=== PATIENT | female | born 1965 | race Two or more races ===

== ENCOUNTER 2019-05-30 01:22 | Inpatient (IN) | payer OTHER ==
[~2019-05-30] VITALS: Ht 144.8 cm; Wt 69.9 kg
[2019-05-30 03:00] VITALS: BP 117/73
--- NOTE | 2019-05-30 03:00 | NUR ---
RECEIVE PT FROM [facility] WITH 2 EMT. PT A/O X 4, STABLE AND NOT IN APPARENT DISTRESS. RESPIRATIONS EVEN AND UNLABORED. PT IS FEELING BETTER. NEEDS ATTENDED, KEPT CLEAN AND COMFORTABLE, PT NOTED WITH TEMP COOLING MEASURES PROVIDED WILL CONTINUE TO MTR.
[2019-05-30] MEDS ORDERED: ASPI-1152 PO (03:05)
[2019-05-30] MEDS ORDERED: GLIP5TAB13 PO (03:05)
[2019-05-30] MEDS ORDERED: SIMV20TA6 PO (03:05)
[2019-05-30] MEDS ORDERED: HYDR25TA4 PO (03:05)
[2019-05-30] MEDS ORDERED: METF-442 PO (03:05)
[2019-05-30] MEDS ORDERED: LEVO88TA5 PO (03:05)
--- NOTE | 2019-05-30 03:15 | NUR ---
PAGED HOSPITALIST FOR ADMITTING ORDERS
--- NOTE | 2019-05-30 03:20 | NUR ---
RN NOTES HOSPITALIST DR. ALEMAN AWARE AND HE WILL PUT THE ADMITTING ORDERS
[2019-05-30] MEDS ORDERED: CEFTRIAXONE 1 G in IV D5W 50 ML IV SCH (04:00)
[2019-05-30] MEDS ORDERED: DEXTROSE 50%-WATER 50 ML DISP.SYRIN IV PRN ×2 (04:00→11:00)
[2019-05-30] MEDS ORDERED: ZOLPIDEM TARTRATE 5 MG TABLET PO PRN (04:00)
[2019-05-30] MEDS ORDERED: INSULIN REGULAR, HUMAN 100 UNIT/ML 3 ML VIAL SQ PRN (04:00)
[2019-05-30] MEDS ORDERED: CEFTRIAXONE 1 G VIAL ONE (04:10)
[2019-05-30] MEDS: IV 1/2NS 1000 ML 1,000 ML IV PRN ×2 (04:16→17:40)
[2019-05-30] MEDS: ACETAMINOPHEN 325 MG TABLET PO PRN ×3 (04:31→21:08)
--- NOTE | 2019-05-30 06:12 | NUR ---
ASLEEP AND EASILY AWAKEN, ON CARDIAC MONITORING WITH SR 93 IN THE TELE MONITOR. RESPIRATIONS EVEN AND UNLABORED. KEPT CLEAN AND DRY AND COMFORTABLE. NEEDS ATTENDED AND ANTICIPATED, NO C/O OF PAIN. SAFETY MEASURES AT ALL TIMES. ENDORSE TO THE NEXT SHIFT.
[2019-05-30] MEDS ORDERED: BLOOD SUGAR DIAGNOSTIC 1 EACH STRIP IN SCH (07:30)
[2019-05-30 08:00] VITALS: BP 100/68
[2019-05-30 08:37] LABS: BASOPHILS % (AUTO) 0.2 % (0.0-2.0); HEMATOCRIT 38 % (33-45); HEMOGLOBIN 13.1 g/dL (11.5-14.8); LYMPHOCYTES # (AUTO) 0.9 /CMM (0.8-4.8); LYMPHOCYTES % (AUTO) 7.8 % (20.0-44.0); MEAN CORPUSCULAR HGB CONC 34 g/dl (31.0-36.0); MEAN CORPUSCULAR VOLUME 89 fL (82-100); MONOCYTES # (AUTO) 0.3 /CMM (0.1-1.30); MONOCYTES % (AUTO) 2.5 % (2.0-12.0); NEUTROPHILS # (AUTO) 9.8 /CMM (1.8-8.9); NEUTROPHILS % (AUTO) 89.5 % (43.0-81.0); PLATELET COUNT (AUTO) 174 /CMM (150-450); RED BLOOD CELL COUNT(AUTO) 4.32 MIL/uL (4.0-5.2)
[2019-05-30 09:14] LABS: CHOLESTEROL 118 mg/dL (<200); HDL CHOLESTEROL 47 mg/dL (40-60); LDL 56 mg/dL (0-99); THYROID STIMULATING HORMONE 4.014 uIU/mL (0.358-3.74); TRIGLYCERIDES 157 mg/dL (30-150)
[2019-05-30 09:17] LABS: ALANINE AMINOTRANSFERASE 56 U/L (12-78); ALBUMIN 3.1 g/dL (3.4-5.0); ALKALINE PHOSPHATASE 150 U/L (46-116); ASPARTATE AMINOTRANSFERASE 70 U/L (15-37); BILIRUBIN,TOTAL 0.3 mg/dL (0.2-1.0); CALCIUM, SERUM 8.4 mg/dL (8.5-10.1); CARBON DIOXIDE 26 mmol/L (21-32); CHLORIDE 97 mmol/L (98-107); GLUCOSE 336 mg/dL (74-106); MAGNESIUM 1.4 mg/dL (1.8-2.4); PHOSPHORUS 3.5 mg/dL (2.5-4.9); SODIUM SERUM 134 mmol/L (136-145); TOTAL PROTEIN, SERUM 7.2 g/dL (6.4-8.2); UREA NITROGEN, BLOOD 7 mg/dL (7-18)
[2019-05-30] MEDS: PANTOPRAZOLE 40 MG TABLET.DR PO SCH (09:19)
[2019-05-30] MEDS: LEVOTHYROXINE SODIUM 88 MCG TABLET PO SCH (09:19)
[2019-05-30] MEDS: ASPIRIN EC 81 MG TABLET.DR PO SCH (09:20)
[2019-05-30] MEDS: MORPHINE SULFATE INJ 2 MG/ML DISP.SYRIN IV PRN (09:20)
[2019-05-30] MEDS: glipiZIDE 5 MG TABLET PO SCH ×2 (09:20→16:57)
--- NOTE | 2019-05-30 09:20 | NUR ---
RN NOTES ADMINISTERED MORPHINE 2 MG/ML IV PUSH GENERALIZED PAIN 07/31PER PATIENT REQUEST. V/S TAKEN 100/68, P-80. ALSO GET CALL FROM LAB PATIENT HAS LOW KCL-2.8, AN LACTIC ACID 2. MD NOTIFIED WAITING FOR RESPOND.
[2019-05-30 09:28] LABS: POTASSIUM 2.8 mmol/L (3.5-5.1)
--- NOTE | 2019-05-30 10:00 | NUR ---
RN NOTES GET ORDERS FROM HOSPITALIST, MEDICATION WERE ADMINISTERED FOR PAIN EFFECTIVE. INFUSING NS BOLUS 1000 ML. PUT NEW IV LINE ON RIGHT AC AREA. LEFT ARM INFUSING MAGNESIUM 100 ML/HR INTACT. CALL LIGHT WITHIN TO REACH,. CONTINUED MONITORING.
[2019-05-30] MEDS ORDERED: POTASSIUM CHLORIDE 20 MEQ TAB.PRT.SR PO ONE (11:00)
[2019-05-30] MEDS: ONDANSETRON HCL/PF 4 MG/2 ML VIAL IVP PRN ×2 (11:19→21:19)
--- NOTE | 2019-05-30 11:19 | NUR ---
rn notes administered Zofran 4 mg/ml iv push for nausea, and vomiting.
[2019-05-30 11:40] LABS: BILIRUBIN,DIRECT 0.2 mg/dL (0.0-0.2)
[2019-05-30] MEDS: Magnesium 1GM/D5W 100ML PREMIX 100 ML IV SCH ×4 (11:47→16:57)
[2019-05-30] MEDS ORDERED: IV NS 0.9% 1,000 ML IV STA (11:57)
[2019-05-30] MEDS: BLOOD SUGAR DIAGNOSTIC 1 EACH STRIP IN SCH ×3 (12:26→21:08)
--- NOTE | 2019-05-30 12:40 | NUR ---
rn notes Get call from lab critical lab lactic acid 4.2 at this time administering NS 1000ml bolus at this time. bs-311mg/dl coverage given, medication were administered for nausea and pain effective. family next to the bed.
[2019-05-30 13:00] VITALS: BP 111/67
[2019-05-30] MEDS: INSULIN REGULAR, HUMAN 100 UNIT/ML 3 ML VIAL SQ PRN ×2 (13:15→17:54)
--- NOTE | 2019-05-30 13:21 | NUR ---
rn notes administered Tylenol for T-102.5, also ice applicant.
--- NOTE | 2019-05-30 14:30 | NUR ---
RN NOTES T-98.7, PATIENT REFUSED NAUSEA, AND VOMITING.
[2019-05-30 16:00] VITALS: BP 91/63
--- NOTE | 2019-05-30 17:00 | NUR ---
RN NOTES LACTIC ACID LEVEL IS 2.7, NOTIFIED HOSPITALIST OREN GET NEW ORDER 1L NS BOLUS, ALSO BLOOD CULTURE X2, AND RECHECK LACTIC ACID ON 2100. ORDERS TAKEN AND CARRIED OUT.
[2019-05-30] MEDS ORDERED: IV NS 0.9% 1,000 ML IV PRN (17:30)
--- NOTE | 2019-05-30 18:30 | NUR ---
RN NOTES PATIENT STABLE, V/S TAKEN WNL., PATIENT RESTING, REFUSING PAIN, NAUSEA/VOMITING AT THIS TIME.ADMINISTERED SCHEDULED MEDICATION, BS-344 COVERAGE GIVEN. INFUSING 1/2 NS 125 ML/HR ON LEFT AC AREA. FAMILY NEXT TO THE BED. ENDORSED ONCOMING NURSE FOLLOW PLAN OF CARE.
--- NOTE | 2019-05-30 19:52 | NUR ---
RN MS OPENING NOTES RECEIVED PATIENT IN BED AWAKE, ALERT AND ORIENTED X4, VERBALLY RESPONSIVE, ABLE TO MAKE NEEDS KNOWN. FAMILY AT BEDSIDE. BREATHING EVEN AND UNLABORED. NO SOB NOTED. TOLERATING ROOM AIR. CURRENTLY WITH NO COMPLAINTS OF PAIN OR DISCOMFORT. NO FACIAL GRIMACING. IV ON LEFT AC INTACT AND PATENT WITH IVF INFUSING. SKIN DRY AND WARM TO TOUCH. ALL OTHER NEEDS ATTENDED TO. SAFETY MEASURES IN PLACE. CALL LIGHT WITHIN REACH. WILL CONTINUE TO MONITOR.
[2019-05-30] MEDS: SIMVASTATIN 20 MG TABLET PO SCH (21:05)
[2019-05-30] MEDS: *INSULIN REGULAR(HUMULIN R)HUM 100 UNIT/ML VIAL SQ PRN (21:12)
[2019-05-30 21:17] VITALS: BP 115/81
--- NOTE | 2019-05-30 22:15 | NUR ---
RN MS NOTES DR. ALEMAN MADE AWARE OF LACTIC ACID 3.3 WITH NO NEW ORDERS AT THIS TIME. WILL CONTINUE TO MONITOR.
[2019-05-31] MEDS ORDERED: VANCOMYCIN 1 GM in IV NS 0.9% 250 ML IV SCH (00:30)
--- NOTE | 2019-05-31 00:32 | NUR ---
RN MS NOTES PATIENT'S CURRENT TEMPERATURE IS 103F ORALLY. DR. ALEMAN, HERE IN UNIT, MADE AWAKE OF TEMPERATURE. ALSO MADE AWARE THAT PATIENT RECEIVED TYLENOL 650MG ALREADY. PER DR. ALEMAN, D/C ROCEPHIN, GIVE VANCOMYCIN 1GM IV X1 NOW AND PHARMACY TO DOSE FOR MORNING, AND ALSO ZOSYN 3.375 IV X1 NOW AND Q8H. ORDERS NOTED AND CARRIED OUT. COOLING MEASURES IN PLACE. WILL CONTINUE TO MONITOR.
[2019-05-31] MEDS ORDERED: PIPERACILLIN /TAZOBACTAM 3.375 G in IV D5W 50 ML IV SCH (01:00)
[2019-05-31] MEDS ORDERED: VANCOMYCIN 1 GM VIAL ONE (01:01)
[2019-05-31] MEDS ORDERED: PIPERACILLIN /TAZOBACTAM 3.375 G VIAL IV ONE (01:02)
[2019-05-31] MEDS: MORPHINE SULFATE INJ 2 MG/ML DISP.SYRIN IV PRN ×3 (01:26→20:10)
[2019-05-31] MEDS: IV 1/2NS 1000 ML 1,000 ML IV PRN ×2 (04:14→16:10)
[2019-05-31] MEDS: BLOOD SUGAR DIAGNOSTIC 1 EACH STRIP IN SCH ×4 (06:34→22:13)
[2019-05-31] MEDS: INSULIN REGULAR, HUMAN 100 UNIT/ML 3 ML VIAL SQ PRN ×3 (06:35→17:30)
--- NOTE | 2019-05-31 06:40 | NUR ---
RN MS CLOSING NOTES PATIENT RESTING IN BED. STATES THAT SHE FEELS MUCH BETTER. TEMPERATURE BETTER. BREATHING EVEN AND UNLABORED. NO SOB NOTED. TOLERATING ROOM AIR. CURRENTLY WITH NO COMPLAINTS OF PAIN OR DISCOMFORT. NO FACIAL GRIMACING. IV ON LEFT AC INTACT AND PATENT WITH IVF INFUSING. ALL NEEDS ATTENDED TO. SAFETY MEASURES IN PLACE. CALL LIGHT WITHIN REACH. WILL ENDORSE TO ONCOMING NURSE FOR RADHA.
--- NOTE | 2019-05-31 07:29 | NUR ---
RN NOTES ENDORSED TO RN TERRIE REGARDING ZOSYN. EXPLAINED THAT I SPOKE TO PHARMACY REGARDING THE 0700 ZOSYN. PER PHARMACY, ZOSYN DOES NOT HAVE TO BE GIVEN RIGHT NOW AND THEY WILL FIX THE SCHEDULED DOSAGE TO THE EXTENDED INFUSION.
--- NOTE | 2019-05-31 07:30 | NUR ---
MS/RN OPENING NOTE THE PATIENT IS RECEIVED IN BED. AWAKE, ALERT AND ORIENTED X4. IN ROOM AIR AND DENIES SOB. RESPIRATION REGULAR AND UNLABORED. DENIES PAIN. THE PATIENT IN NO APPARENT DISTRESS. LAC G 20 PATENT AND SALINE LOCKED. RAC G 20 PATENT AND 1/2 NS INFUSING AT 125ML/HR AND NO S/S INFILTRATION NOTED. BED LOW AND LOCKED. SIDE RAILS UP X3. CALL LIGHT WITHIN REACH. WILL CONTINUE TO MAGITOT.
[2019-05-31] MEDS ORDERED: FEE PK DOSING 1 MIN EA MC ONE (07:48)
[2019-05-31 08:00] VITALS: BP 124/78
[2019-05-31] MEDS: glipiZIDE 5 MG TABLET PO SCH ×2 (08:15→18:22)
[2019-05-31] MEDS: LEVOTHYROXINE SODIUM 88 MCG TABLET PO SCH (08:15)
[2019-05-31] MEDS: PANTOPRAZOLE 40 MG TABLET.DR PO SCH (08:15)
[2019-05-31] MEDS: ASPIRIN EC 81 MG TABLET.DR PO SCH (08:15)
[2019-05-31 08:18] LABS: BASOPHILS % (AUTO) 0.2 % (0.0-2.0); EOSINOPHILS % (AUTO) 0.1 % (0.0-6.0); HEMATOCRIT 37 % (33-45); HEMOGLOBIN 12.2 g/dL (11.5-14.8); LYMPHOCYTES # (AUTO) 1.7 /CMM (0.8-4.8); LYMPHOCYTES % (AUTO) 15.1 % (20.0-44.0); MEAN CORPUSCULAR HGB CONC 33 g/dl (31.0-36.0); MEAN CORPUSCULAR VOLUME 90 fL (82-100); MONOCYTES # (AUTO) 0.5 /CMM (0.1-1.30); MONOCYTES % (AUTO) 4.6 % (2.0-12.0); NEUTROPHILS # (AUTO) 8.9 /CMM (1.8-8.9); PLATELET COUNT (AUTO) 132 /CMM (150-450); RED BLOOD CELL COUNT(AUTO) 4.12 MIL/uL (4.0-5.2); WHITE BLOOD COUNT (AUTO) 11.1 K/uL (4.3-11.0)
[2019-05-31 08:22] LABS: CALCIUM, SERUM 8.4 mg/dL (8.5-10.1); CREATININE 0.9 mg/dL (0.6-1.3); MAGNESIUM 2.3 mg/dL (1.8-2.4); PHOSPHORUS 1.9 mg/dL (2.5-4.9); POTASSIUM 3.4 mmol/L (3.5-5.1)
[2019-05-31] MEDS: PIPERACILLIN /TAZOBACTAM 3.375 G in IV D5W 100 ML IV SCH ×2 (08:27→16:10)
[2019-05-31] MEDS: ACETAMINOPHEN 325 MG TABLET PO PRN ×2 (08:43→20:08)
[2019-05-31] MEDS: ONDANSETRON HCL/PF 4 MG/2 ML VIAL IVP PRN ×2 (08:44→18:17)
--- NOTE | 2019-05-31 09:08 | NUR ---
MS/RN NOTE MOHAN SILVA STATED THAT HE MADE DR CABRERA AWARE OF POSSIBLE SURGERY.
[2019-05-31] MEDS ORDERED: NEUTRA PHOS 1 POWD.PACKET PO ONE (11:00)
[2019-05-31] MEDS ORDERED: POTASSIUM CHLORIDE 20 MEQ TAB.PRT.SR PO SCH (12:00)
--- NOTE | 2019-05-31 12:00 | NUR ---
MS/RN NOTE COAL MINER EBONI IS MADE AWARE THAT THE PATIENT HAD TEMP OF 100.3 AND AFTER COOLING MEASURES TEMP DECREASED TO 99.1. NO NEW ORDER PER COAL MINER.
[2019-05-31 16:00] VITALS: BP_SYST 84; BP_SYST 89; BP_DIAS 48
[2019-05-31] MEDS ORDERED: HYDROCODONE/APAP 5/325MG 1 EACH TABLET PO PRN (16:30)
--- NOTE | 2019-05-31 18:41 | NUR ---
MS/RN NOTE THE PATIENT ALERT AND ORIENTED X4. RECEIVING OXYGEN AT 2L/MIN VIA NASAL CANNULA AND SATURATION IS AT 97%. DENIES SOB. DENIES PAIN. LAC 20 PATENT AND RAC G 20 PATENT AND MEDICATIONS INFUSING PER ORDER WITH NO S/S INFILTRATION. BED LOW AND LOCKED. SIDE RAILS UP X3. CALL LIGHT WITHIN REACH. WILL ENDORSE TO REGIONAL CONTROLLER.
[2019-05-31] MEDS: VANCOMYCIN 1 GM in IV D5W 250 ML IV SCH (18:52)
--- NOTE | 2019-05-31 19:45 | NUR ---
RN OPENING NOTES RECEIVED REPORT FROM DAYSHIFT RN TERRIE. FOUND Pt AWAKE, RESTING IN BED, DAUGHTER AT BEDSIDE. NO S/S OF ACUTE DISTRESS OR SOB NOTED. RESPIRATIONS EVEN AND UNLABORED. Pt IS A/OX4, VERBAL, ABLE TO MAKE NEEDS KNOWN. IV ACCESS ON LAC #20G & RAC #20G. SAFETY MEASURES IN PLACE. BED LOW, LOCKED, HOB ELEVATED, SIDE RAILS UP, CALL LIGHT AND BEDSIDE TABLE WITHIN REACH. WILL CONTINUE TO MONITOR Pt's CONDITION AND SAFETY THROUGHOUT THE NIGHT.
[2019-05-31 20:00] VITALS: BP 142/81
--- NOTE | 2019-05-31 20:10 | NUR ---
RN NOTES ORAL TEMP 103F. ADMINISTERED TYLENOL 650MG FOR FEVER. COOLING MEASURES APPLIED TO Pt WITH ICE BAGS. PER DAYSHIFT REPORT Pt HAS BEEN SPIKING FEVERS UP TO 103, IS AWARE. WILL CONTINUE TO MONITOR Pt's FEVER.
[2019-05-31] MEDS ORDERED: INSULIN GLARGINE, 100 UNIT/ML CARTRIDGE SQ SCH (22:00)
--- NOTE | 2019-05-31 22:00 | NUR ---
RN NOTES RECHECK ORAL TEMP: 99.3F
[2019-05-31] MEDS: NYSTATIN (PYXIS) 500,000 UNIT/5 ML ORAL.SUSP PO SCH (22:12)
[2019-05-31] MEDS: SIMVASTATIN 20 MG TABLET PO SCH (22:13)
[2019-05-31] MEDS: FLUCONAZOLE (100 MG) 100 MG TABLET PO SCH (22:13)
--- NOTE | 2019-05-31 22:30 | NUR ---
RN NOTES HS ACCUCHECK BG 317. ADMINISTERED SCHEDULED DOSE OF LANTUS 12UN WITH ADDITIONAL REGULAR INSULIN COVERAGE OF 8UN PER SLIDING SCALE.
[2019-05-31] MEDS: *INSULIN REGULAR(HUMULIN R)HUM 100 UNIT/ML VIAL SQ PRN (22:31)
[2019-06-01] MEDS: PIPERACILLIN /TAZOBACTAM 3.375 G in IV D5W 100 ML IV SCH ×3 (00:51→16:50)
[2019-06-01] MEDS: MORPHINE SULFATE INJ 2 MG/ML DISP.SYRIN IV PRN ×4 (02:27→21:42)
[2019-06-01 03:37] LABS: APPEARANCE,URINE Slightly Cloudy (CLEAR); BILIRUBIN,URINE Negative (NEGATIVE); BLOOD, URINE Small Ery/uL (NEGATIVE); COLOR,URINE Yellow (YELLOW); KETONES,URINE Trace (NEGATIVE); LEUKOCYTE ESTERASE ,URINE Trace (NEGATIVE); NITRITE, URINE Negative (NEGATIVE); PROTEIN,URINE 30 mg/dl (NEGATIVE); UGLUCOSE 500 MG/DL mg/dL (NEGATIVE); UROBILINOGEN,URINE 0.2 EU/dL (0.2)
[2019-06-01 04:01] LABS: BACTERIA,URINE None seen /HPF (None Seen); SQUAMOUS EPITHELIAL CELL,UR Few /HPF (None Seen); YEAST,URINE Few /HPF (None Seen)
[2019-06-01 06:20] LABS: BASOPHILS % (AUTO) 0.3 % (0.0-2.0); EOSINOPHILS % (AUTO) 0.2 % (0.0-6.0); HEMATOCRIT 33 % (33-45); HEMOGLOBIN 11.1 g/dL (11.5-14.8); LYMPHOCYTES # (AUTO) 1.9 /CMM (0.8-4.8); LYMPHOCYTES % (AUTO) 19.7 % (20.0-44.0); MEAN CORPUSCULAR HGB CONC 34 g/dl (31.0-36.0); MEAN CORPUSCULAR VOLUME 89 fL (82-100); MONOCYTES # (AUTO) 0.4 /CMM (0.1-1.30); MONOCYTES % (AUTO) 4.6 % (2.0-12.0); NEUTROPHILS # (AUTO) 7.1 /CMM (1.8-8.9); NEUTROPHILS % (AUTO) 75.2 % (43.0-81.0); PLATELET COUNT (AUTO) 123 /CMM (150-450); RED BLOOD CELL COUNT(AUTO) 3.68 MIL/uL (4.0-5.2); WHITE BLOOD COUNT (AUTO) 9.5 K/uL (4.3-11.0)
[2019-06-01 06:46] LABS: CREATININE 0.7 mg/dL (0.6-1.3); PHOSPHORUS 1.9 mg/dL (2.5-4.9); POTASSIUM 3.2 mmol/L (3.5-5.1)
--- NOTE | 2019-06-01 07:00 | NUR ---
RN NOTES AC ACCUCHECK BG 269. ADMINISTERED 9UN OF INSULIN PER SLIDING SCALE ON LEFT UPPER ABD.
--- NOTE | 2019-06-01 07:02 | NUR ---
RN CLOSING NOTES NO SIGNIFICANT CHANGES IN Pt's CONDITION. NO S/S OF ACUTE DISTRESS OR SOB NOTED DURING THE NIGHT. Pt IS AWAKE, RESTING IN BED. RESPIRATIONS EVEN AND UNLABORED. WILL ENDORSE TO DAYSHIFT RN FOR Pt's RADHA.
[2019-06-01] MEDS: BLOOD SUGAR DIAGNOSTIC 1 EACH STRIP IN SCH ×3 (07:06→18:05)
[2019-06-01] MEDS: INSULIN REGULAR, HUMAN 100 UNIT/ML 3 ML VIAL SQ PRN ×4 (07:16→21:47)
[2019-06-01 08:00] VITALS: BP 128/80
--- NOTE | 2019-06-01 08:00 | NUR ---
MS MARKS NOTES PATIENT IN BED RESTING. DAUGHTER AT BEDSIDE. PATIENT DENIES PAIN. PERIPHERAL IV INTACT PATENT. BED IN LOW LOCKED POSITION. CALL LIGHT WITHIN REACH. WILL CONTINUE TO MONITOR. Addendum: 06/01/19 at 1900 by ANGIE LUGO RN FEVER OF 100.2 NOTED INFORMED CANDI FREIRE ADMINISTERED.
[2019-06-01] MEDS: NYSTATIN (PYXIS) 500,000 UNIT/5 ML ORAL.SUSP PO SCH ×3 (08:30→16:50)
[2019-06-01] MEDS: LEVOTHYROXINE SODIUM 88 MCG TABLET PO SCH (08:30)
[2019-06-01] MEDS: ASPIRIN EC 81 MG TABLET.DR PO SCH (08:30)
[2019-06-01] MEDS: glipiZIDE 5 MG TABLET PO SCH ×2 (08:30→16:50)
[2019-06-01] MEDS: PANTOPRAZOLE 40 MG TABLET.DR PO SCH (08:31)
[2019-06-01] MEDS: ACETAMINOPHEN 325 MG TABLET PO PRN (08:31)
[2019-06-01] MEDS: IV 1/2NS 1000 ML 1,000 ML IV PRN (09:48)
[2019-06-01] MEDS ORDERED: DEXTROSE 50%-WATER 50 ML DISP.SYRIN IV PRN (11:00)
--- NOTE | 2019-06-01 11:00 | NUR ---
MS RN NOTES PATIENT WAS SEEN BY CANDI LYN. ORDERS FOR LUMBAR PUNCTURE DUE TO RULE OUT MENINGITIS. PATIENT PLACED NEGATIVE PRESSURE ISOLATION FOR PROTECTION. PROCEDURE EXPLAINED TO PATIENT BY CANDI PRESTON, CONSENT OBTAINED. RADIOLOGY MADE AWARE OF PROCEDURE. WILL CONTINUE TO MONITOR.
[2019-06-01] MEDS: POTASSIUM CHLORIDE 20 MEQ TAB.PRT.SR PO SCH ×2 (11:31→12:27)
[2019-06-01] MEDS ORDERED: K PHOS NEUTRAL 250 MG TABLET PO ONE (13:30)
[2019-06-01] MEDS: VANCOMYCIN 1 GM in IV D5W 250 ML IV SCH (13:34)
--- NOTE | 2019-06-01 14:31 | NUR ---
CALLED [facility] PT SEVERAL TIMES DURING THE DAY. OF 1430 NO INR IS AVAILABLE,. RADIOLOGIST ONSITE HAS A PROCEDURE AT [facility] AT 1500HRS. NURSE WAS ADVISED.
[2019-06-01 16:44] VITALS: BP 129/81
--- NOTE | 2019-06-01 17:00 | NUR ---
MS RN NOTES CALL RECEIVED FROM RADIOLOGY LUMBAR PONCTURE WILL BE PERFORMED LATER REJIIGHT SPOKE TO FRANCES. PATIENT MADE AWARE. WILL CONTINUE TO MONITOR.
--- NOTE | 2019-06-01 18:59 | NUR ---
MS RN NOTES PATIENT IN BED RESTING NO SOB OR ACUTE DISTRESS NOTED. PATIENT ALERT, ORIENTED X3. ALL MEDICATIONS ADMINISTERED. ALL NEEDS MET. WILL ENDORSE TO PM SHIFT.
--- NOTE | 2019-06-01 19:39 | NUR ---
RN OPENING NOTES RECEIVED REPORT FROM [facility] KENDRICK ADAMS. Pt LEFT FOR RADIOLOGY VIA WHEELCHAIR FOR LUMBAR PUNCTURE TO R/O MENINGITIS. ALL CONSENT SIGNED BY Pt. NO S/S OF ACUTE DISTRESS OR SOB NOTED. SAFETY MEASURES IN PLACE. WILL CONTINUE TO MONITOR Pt's CONDITION AND SAFETY WHEN Pt RETURNS TO FLOOR S/P LUMBAR PUNCTURE.
--- NOTE | 2019-06-01 19:41 | NUR ---
RN NOTES PUT IN ORDER FOR HEAD CT WO CONTRAST PER DR ALEMAN's ORDER FOR LUMBAR PUNCTURE
[2019-06-01 20:00] VITALS: BP 146/84
--- NOTE | 2019-06-01 20:06 | NUR ---
[employer] [facility] RADIOLOGIST DR FERNANDES SPOKE WITH ORDERING PHYSICIAN TO REQUEST AN CT HEAD OF THE PT DUE TO CONTRAINDICATIONS. DR FERNANDES THEN NOTIFIED US THAT LUMBAR PUNCTURE WILL BE PERFORMED ON Tuesday06/04/2019
--- NOTE | 2019-06-01 20:15 | NUR ---
RN NOTES Pt CAME BACK FROM RADIOLOGY. PER Pt STATEMENT ONLY DID HEAD CT BUT DID NOT DO THE LUMBAR PUNCTURE, Pt SAID SHE WAS TOLD BY THE RADIOLOGY STAFF THAT THEY WILL HAVE TO RESCHEDULE THE LUMBAR PUNCTURE FOR TUESDAY INSTEAD.
--- NOTE | 2019-06-01 20:37 | NUR ---
RN NOTES SPOKE WITH INTEGRATION ARCHITECT RYAN GIFFORD ON THE FLOOR. INFORMED HER OF Pt's BLADDER SCANNER RESULT: 137CC. Pt ALSO STATED THAT SHE HAS BEEN URINATING FINE. PER INTEGRATION ARCHITECT SAID TO DISREGARD THE PRIETO CATH ORDER SINCE Pt IS URINATING FINE AND IS NOT SHOWING URINARY RETENTION.
--- NOTE | 2019-06-01 20:38 | NUR ---
DISREGARD PRIETO CATHETER ORDER BY MOHAN GIFFORD. PER FISCAL SERVICES DIRECTOR. SINCE Pt STATES SHE IS URINATING FINE AND ON THE BLADDER SCANNER ONLY SHOWED SHE HAD 137CC OF URINE, MOHAN GIFFORD SAID TO DISREGARD THE PRIETO ORDER.
[2019-06-01] MEDS: FLUCONAZOLE (100 MG) 100 MG TABLET PO SCH (21:26)
[2019-06-01] MEDS: SIMVASTATIN 20 MG TABLET PO SCH (21:26)
[2019-06-01] MEDS: INSULIN GLARGINE, 100 UNIT/ML CARTRIDGE SQ SCH (21:44)
[2019-06-01] MEDS: ONDANSETRON HCL/PF 4 MG/2 ML VIAL IVP PRN (21:49)
--- NOTE | 2019-06-01 22:05 | NUR ---
RN NOTES BG 189. ADMINISTERED SCHEDULED 16UN OF LANTUS. GAVE ADDITIONAL COVERAGE OF 4UN REGULAR INSULIN PER SLIDING SCALE.
[2019-06-02] MEDS: PIPERACILLIN /TAZOBACTAM 3.375 G in IV D5W 100 ML IV SCH ×4 (00:23→23:04)
[2019-06-02] MEDS: BLOOD SUGAR DIAGNOSTIC 1 EACH STRIP IN SCH ×5 (00:23→23:10)
[2019-06-02] MEDS: PANTOPRAZOLE 40 MG TABLET.DR PO SCH (06:30)
[2019-06-02] MEDS: LEVOTHYROXINE SODIUM 88 MCG TABLET PO SCH (06:30)
[2019-06-02 06:37] LABS: BASOPHILS % (AUTO) 0.4 % (0.0-2.0); EOSINOPHILS % (AUTO) 1.9 % (0.0-6.0); HEMATOCRIT 33 % (33-45); HEMOGLOBIN 11.2 g/dL (11.5-14.8); MEAN CORPUSCULAR HGB CONC 34 g/dl (31.0-36.0); MEAN CORPUSCULAR VOLUME 89 fL (82-100); MONOCYTES # (AUTO) 0.7 /CMM (0.1-1.30); NEUTROPHILS # (AUTO) 4.4 /CMM (1.8-8.9); NEUTROPHILS % (AUTO) 53.7 % (43.0-81.0); PLATELET COUNT (AUTO) 140 /CMM (150-450); RED BLOOD CELL COUNT(AUTO) 3.68 MIL/uL (4.0-5.2); WHITE BLOOD COUNT (AUTO) 8.2 K/uL (4.3-11.0)
[2019-06-02] MEDS: INSULIN REGULAR, HUMAN 100 UNIT/ML 3 ML VIAL SQ PRN ×4 (06:42→23:11)
--- NOTE | 2019-06-02 06:44 | NUR ---
RN NOTES ACCUCHECK BG 154. ADMINISTERED 2UN OF INSULIN PER SLIDING SCALE.
[2019-06-02 06:47] LABS: CALCIUM, SERUM 8.3 mg/dL (8.5-10.1); CREATININE 0.6 mg/dL (0.6-1.3); PHOSPHORUS 1.9 mg/dL (2.5-4.9); POTASSIUM 3.1 mmol/L (3.5-5.1)
--- NOTE | 2019-06-02 07:39 | NUR ---
MS RN OPENING NOTES RECEIVED PATIENT IN BED RESTING COMFORTABLY. PATIENT IN NO ACUTE DISTRESS. PATIENT BREATHING ON OXYGEN NC AT 1L. NO SOB NOTED. PATIENT STATES SHE HAS NO CURRENT PAIN. NO FACIAL GRIMACING NOTED. PATIENT MAINTAINED ON ISOLATION PRECAUTIONS. PATIENT BED IS LOCKED AND IN LOWEST POSITION. CALL LIGHT WITHIN REACH, WILL CONTINUE TO MONITOR.
[2019-06-02] MEDS: glipiZIDE 5 MG TABLET PO SCH ×2 (08:12→17:22)
[2019-06-02] MEDS: NYSTATIN (PYXIS) 500,000 UNIT/5 ML ORAL.SUSP PO SCH ×3 (08:12→17:22)
[2019-06-02] MEDS: ASPIRIN EC 81 MG TABLET.DR PO SCH (08:12)
[2019-06-02] MEDS: IV 1/2NS 1000 ML 1,000 ML IV PRN (08:12)
[2019-06-02 08:13] VITALS: BP 133/79
[2019-06-02] MEDS ORDERED: POTASSIUM CHLORIDE 20 MEQ TAB.PRT.SR PO ONE (11:00)
--- NOTE | 2019-06-02 11:15 | NUR ---
MS RN NOTE PATIENT SEEN AND EVALUATED BY MOHAN LYN. ORDERS FOR CT CHEST, ABDOMEN, AND PELVIS WITH CONTRAST. ACTED A WITNESS FOR PATIENTS CONSENT. PATIENT VERBALIZES UNDERSTANDING. PATIENT IN NO ACUTE DISTRESS. WILL CONTINUE TO MONITOR
[2019-06-02] MEDS ORDERED: K PHOS NEUTRAL 250 MG TABLET PO ONE (11:30)
[2019-06-02] MEDS ORDERED: IOHEXOL-300 100 ML VIAL IV ONE (14:56)
[2019-06-02] MEDS ORDERED: IV NS 0.9% 250 ML IV ONE (14:56)
[2019-06-02] MEDS ORDERED: CT SWABBABLE VALVE TRANS SET 1 EA INFUS.SET MC ONE (14:56)
[2019-06-02 16:00] VITALS: BP 142/74
--- NOTE | 2019-06-02 18:45 | NUR ---
MS RN CLOSING NOTE PATIENT IN BED RESTING, BREATHING ON OXYGEN NC AT 2L. PATIENT HAS DAUGHTER AT THE BEDSIDE. PATIENT BREATHING IS EVEN AND UNLABORED. PATIENT IN NO ACUTE DISTRESS. NO SOB NOTED. PATIENT STATES NO PAIN AT THIS TIME. NO FACIAL GRIMACING NOTED. LEFT BASILIC MIDLINE 18G IN PLACE AND INTACT. PATIENT KEPT CLEAN, DRY, AND COMFORTABLE DURING MY SHIFT. ALL NURSING NEEDS MET. PATIENT BED LOCKED AND IN LOWEST POSITION. CALL LIGHT WITHIN REACH. WILL ENDORSE CARE TO PM SHIFT.
--- NOTE | 2019-06-02 19:36 | NUR ---
MS RN RECEIVE PT IN CHAIR A/O X 3, STABLE, RESPIRATIONS EVEN AND UNLABORED, SAFETY MEASURES IN PLACE. WILL CONTINUE TO MONITOR
[2019-06-02 20:00] VITALS: BP 140/82
[2019-06-02] MEDS: FLUCONAZOLE (100 MG) 100 MG TABLET PO SCH (20:43)
[2019-06-02] MEDS: SIMVASTATIN 20 MG TABLET PO SCH (21:10)
[2019-06-02] MEDS: INSULIN GLARGINE, 100 UNIT/ML CARTRIDGE SQ SCH (21:45)
[2019-06-03] MEDS: IV 1/2NS 1000 ML 1,000 ML IV PRN (01:11)
[2019-06-03] MEDS: INSULIN REGULAR, HUMAN 100 UNIT/ML 3 ML VIAL SQ PRN ×2 (05:50→12:22)
[2019-06-03] MEDS: BLOOD SUGAR DIAGNOSTIC 1 EACH STRIP IN SCH ×2 (05:50→12:12)
--- NOTE | 2019-06-03 06:11 | NUR ---
MS RN ASLEEP AND EASILY AWAKEN, AFEBRILE, RESPIRATIONS EVEN AND UNLABORED. SLEPT WELL THROUGHOUT THE NIGHT. NO S/S OF DISTRESS, KEPT CLEAN AND DRY AND COMFORTABLE. NEEDS ATTENDED AND ANTICIPATED. NURSING CARE RENDERED, NO C/O OF PAIN. SAFETY MEASURES AT ALL TIMES. ENDORSE TO THE NEXT SHIFT.
[2019-06-03 06:42] LABS: BASOPHILS % (AUTO) 0.2 % (0.0-2.0); EOSINOPHILS % (AUTO) 1.9 % (0.0-6.0); HEMATOCRIT 34 % (33-45); HEMOGLOBIN 11.6 g/dL (11.5-14.8); LYMPHOCYTES # (AUTO) 3.1 /CMM (0.8-4.8); LYMPHOCYTES % (AUTO) 40.1 % (20.0-44.0); MEAN CORPUSCULAR HGB CONC 34 g/dl (31.0-36.0); MEAN CORPUSCULAR VOLUME 89 fL (82-100); MONOCYTES # (AUTO) 0.6 /CMM (0.1-1.30); NEUTROPHILS # (AUTO) 3.8 /CMM (1.8-8.9); NEUTROPHILS % (AUTO) 49.8 % (43.0-81.0); PLATELET COUNT (AUTO) 175 /CMM (150-450); RED BLOOD CELL COUNT(AUTO) 3.85 MIL/uL (4.0-5.2); WHITE BLOOD COUNT (AUTO) 7.7 K/uL (4.3-11.0)
[2019-06-03 06:59] LABS: CALCIUM, SERUM 8.3 mg/dL (8.5-10.1); CREATININE 0.6 mg/dL (0.6-1.3); MAGNESIUM 1.8 mg/dL (1.8-2.4); POTASSIUM 3.2 mmol/L (3.5-5.1)
--- NOTE | 2019-06-03 07:24 | NUR ---
MS RN OPENING NOTES RECEIVED PATIENT IN BED SLEEPING, BREATHING ON OXYGEN NC 2L. BREATHING IS EVEN AND UNLABORED. PATIENT IN NO ACUTE DISTRESS. PATIENT IV INTACT. SAFETY MEASURES IN PLACE. NO FACIAL GRIMACING NOTED. PATIENT MAINTAINED ON ISOLATION PRECAUTIONS. PATIENT BED IS LOCKED AND IN LOWEST POSITION. CALL LIGHT WITHIN REACH. WILL CONTINUE TO MONITOR.
[2019-06-03 08:00] VITALS: BP 151/80
[2019-06-03] MEDS: LEVOTHYROXINE SODIUM 88 MCG TABLET PO SCH (08:11)
[2019-06-03] MEDS: ASPIRIN EC 81 MG TABLET.DR PO SCH (08:11)
[2019-06-03] MEDS: glipiZIDE 5 MG TABLET PO SCH (08:12)
[2019-06-03] MEDS: PIPERACILLIN /TAZOBACTAM 3.375 G in IV D5W 100 ML IV SCH (08:12)
[2019-06-03] MEDS: PANTOPRAZOLE 40 MG TABLET.DR PO SCH (08:12)
[2019-06-03] MEDS: NYSTATIN (PYXIS) 500,000 UNIT/5 ML ORAL.SUSP PO SCH ×2 (08:12→12:15)
[2019-06-03] MEDS: ACETAMINOPHEN 325 MG TABLET PO PRN (08:12)
[2019-06-03] MEDS ORDERED: LEVO750T21 PO (11:03)
[2019-06-03] MEDS ORDERED: AMOX-430 PO (11:03)
[2019-06-03] MEDS: POTASSIUM CHLORIDE 20 MEQ TAB.PRT.SR PO SCH ×2 (12:15→13:21)
--- NOTE | 2019-06-03 16:00 | NUR ---
MS MARINE ENGINE DRIVER NOTE PATIENT STABLE AND READY TO BE DISCHARGED. PATIENT VITAL SIGNS WITHIN NORMAL LIMITS. PATIENT BREATHING ON ROOM AIR SATURATING >95% SPO2. PATIENT BREATHING IS EVEN AND UNLABORED. NO ACUTE DISTRESS NOTED. NO SOB NOTED. PATIENT COMPLAINS OF NO PAIN. PATIENT VERBALIZED NEEDS DURING SHIFT, NEEDS ADDRESSED. PATIENT ID BAND REMOVED. IVS REMOVED. PATIENT SIGNED BELONGINGS LIST AND IN CHART. PATIENT BELONGINGS WITH PATIENT. DC INSTRUCTIONS PROVIDED TO PATIENT AND DAUGHTER. DC PACKET WITH PATIENT. PATIENT AND DAUGHTER VERBALIZE UNDERSTANDING. SKIN ASSESSED, NO NEW SKIN BREAKDOWN NOTED. PATIENT KEPT CLEAN, DRY, AND COMFORTABLE. ALL NURSING NEEDS MET. PATIENT WENT BACK HOME WITH DAUGHTER. MD AWARE OF DISCHARGE.
== END 2019-06-03 15:30 | disposition home or self-care (01) | DRG 720 ==
LOC: TELE 02:33 → MED 09:00
PROVIDERS: ADMIT Registered Nurse; ATTEND Registered Nurse
PROC: 05HC33Z Insertion of Infusion Device into Left Basilic Vein, Percutaneous Approach (ICD-10-PCS; principal; 2019-06-02)
DX: A41.9 Sepsis, unspecified organism (principal); N17.0 Acute kidney failure with tubular necrosis; R65.21 Severe sepsis with septic shock; K31.84 Gastroparesis; E83.39 Other disorders of phosphorus metabolism; E11.43 Type 2 diabetes mellitus with diabetic autonomic (poly)neuropathy; J15.9 Unspecified bacterial pneumonia; E11.65 Type 2 diabetes mellitus with hyperglycemia; E83.42 Hypomagnesemia; E87.2 Acidosis; N10 Acute pyelonephritis; I10 Essential (primary) hypertension; E87.6 Hypokalemia; E78.5 Hyperlipidemia, unspecified; R74.0 Nonspecific elevation of levels of transaminase and lactic acid dehydrogenase [LDH]; E66.9 Obesity, unspecified; Z68.33 Body mass index [BMI] 33.0-33.9, adult; E03.9 Hypothyroidism, unspecified; B37.0 Candidal stomatitis; R33.9 Retention of urine, unspecified
CPT/HCPCS: 36415; 36569; 70450-TC; 71045-TC; 71260-TC; 80048-TC; 80053-TC; 80061-TC; 80202-TC; 81000-TC; 82248-TC; 82962-TC; 83605-TC; 83690-TC; 83735-TC; 84100-TC; 84443-TC; 85025-TC; 85610-TC; 85730-TC; 87040-TC; 87081-TC; 87086-TC; 87400; G0378; J0696; J1815; J2270; J2405; J2543; J3370; J3475; J3490; J7030; J7050; J7060; Q9967